=== PATIENT | male | born 1955 | race American Indian/Alaskan Native ===

== ENCOUNTER 2017-10-09 08:22 | Day surgery (SDC) | payer MEDICAID ==
[2017-10-09] MEDS ORDERED: TETRACAINE 0.5% OD SCH (10:14)
--- NOTE | 2017-10-09 10:57 | Anesthesia Consultation ---
Anesthesia Consult and Med Hx Date of service: 10/09/17 - Airway Anesthetic Teeth Evaluation: Poor (missing most teeth) ROM Head & Neck: Inadequate Mental/Hyoid Distance: Adequate Mallampati Class: Class III Intubation Access Assessment: Possibly Difficult - Cardiac Exam Cardiac Exam: RRR Anesthetic Concerns: Patient w/o recent MVR. Manager Oracle Database cleared for only Local Anesthesia. h/o PND. today tolerated recumbent postion w/o O2 in preop area for 20minutes under direct supervision - Pre-Operative Health Status ASA Pre-Surgery Classification: ASA4 Proposed Anesthetic Plan: Local - Pulmonary Hx Smoking: No Hx Respiratory Symptoms: Yes SOB: Yes COPD: Yes Home Oxygen Therapy: No - Cardiovascular System Hx Hypertension: Yes Hx Valvular Heart Disease: Yes (s/pMVR) - Central Nervous System Hx Back Pain: Yes - Other Systems Hx Alcohol Use: No Hx Substance Use: No Hx Cancer: No Hx Obesity: Yes
--- NOTE | 2017-10-09 10:58 | Anesthesia Day of Surgery ---
Anesthesia Day of Surgery - Day of Surgery Patient Examined: Yes Patient H&P Reviewed: Yes Patient is NPO: Yes Cardiac Clearance: Yes
[2017-10-09] MEDS: MYDRIACYL OD SCH ×3 (11:00→11:12)
[2017-10-09] MEDS: VIGAMOX OD SCH ×2 (11:00→11:06)
[2017-10-09] MEDS: AK-Dilate OD SCH ×3 (11:00→11:12)
[2017-10-09] MEDS ORDERED: SUBLIMAZE ONE (11:19)
[2017-10-09] MEDS ORDERED: VERSED ONE (11:20)
[2017-10-09] MEDS ORDERED: VISION BLUE IO ONE (11:36)
[2017-10-09] MEDS ORDERED: DIAMOX PO ONE (12:13)
--- NOTE | 2017-10-09 12:15 | Operative Report ---
Operative Report Operative Report: PATIENT'S NAME: DATE OF : DATE OF SURGERY: 10/09/2017 PREOPERATIVE DIAGNOSIS: white Cataract right eye POSTOPERATIVE DIAGNOSIS: Same OPERATIVE PROCEDURE: Phacoemulsification with intraocular lens implantation with trypan blue, right eye SURGEON: Sarah Martinez M.D. FRUIT PITTER SURGEON: Shravan Lens: [id number] 15.5 D ANESTHESIA: Monitored anesthesia care in combination with topical and intracameral anesthesia because of the established specific risk of reflux, arrhythmias, or anxiety attacks associated with ocular manipulation, as well as the difficulty of the supervisor pumping station to manage such potentially catastrophic events while simultaneously attempting to complete the surgical procedure and was deemed necessary for the patient's safety to have an 2 Year Olds Preschool Teacher present during the procedure whenever possible. An 2 Year Olds Preschool Teacher was utilized to regulate the intravenous sedation of the patient so the patient was cooperative yet not asleep in order for the patient to successfully maintain fixation of the eye on the operating light of the microscope. COMPLICATIONS: No surgical complications No blood loss. ALLERGIES: o known drug allergies]PROGNOSIS: Excellent INDICATIONS FOR SURGERY: The patient is undergoing surgery in the hopes of eliminating or improving these visual difficulties. PROCEDURE: After arriving at the surgery center, the patient was given topical anesthetic and dilating drops, as noted in the record. The patient was then taken into the operating room and given more anesthetic drops. The eyelids , lashes, and lid margins were scrubbed with Betadine solution, and the patient was draped. The Nurse 2 Year Olds Preschool Teacher administered IV sedation and monitored the patient during the procedure. The eye was then fixated with a 0.12, and a stab incision was made in the peripheral clear cornea into the anterior chamber. This was made on my left side. Air followed by trypan blue injected. Viscoelastic was next used to fill the anterior chamber. The eye was once again fixated with the 0.12 forceps and a keratome was used make an incision in clear cornea peripherally on my right hand side temporally. The capsule forceps were used to open the central anterior capsule and then make a continuous round capsulotomy. Hydrodissection was carried out utilizing a cannula and balanced salt solution to delineate the cortical material from the capsule and the nucleus from the cortical material. The phaco tip was introduced into the eye and used to remove the anterior cortical material in the area of the capsulotomy. Then the phaco tip was buried into the nucleus, and a chopping instrument was introduced into the eye and used to provide countertraction in the nucleus between this instrument and the phaco tip fracturing the nucleus. This procedure was repeated multiple times, providing multiple small segments of the lens, and then the phaco tip was used to remove each of these segments. An I/A tip was then used to remove the remaining cortex. The anterior chamber was refilled with viscoelastic. An one-piece, acrylic intraocular lens was then placed into an inserting cartridge. The tip of the inserting cartridge was introduced into the keratome incision and into the anterior chamber. The implant was gently advanced through the cartridge and into the eye, where it unfolded, and both haptics were placed in the capsular bag, where it centered nicely and appeared to be well fixated. After placement of the intraocular lens, the I~and~A handpiece was placed back into the eye and used to remove the viscoelastic, including viscoelastic that was behind the optic of the intraocular lens. The anterior chamber was then filled with balanced salt solution, and hydration of the wound was used to cause swelling of the wound and more appropriate watertight closure. When the wound was found to be firm, the patient was asked to comment on how bright the light was. If there was no light perception at all or if the light was substantially dimmer than during the rest of the surgery, the amount of fluid in the eye was decompressed to lower the intraocular pressure until the patient could see the bright light again. This was done to avoid any damage or decreased blood flow to the optic nerve. MEDICATIONS APPLIED AT END OF SURGERY: One drop of Pred Forte and Vigamox The patient was given a shield to wear at night and was instructed not to rub or push on the eye. DISCHARGE SUMMARY: The patient was released in stable condition. The patient and those with the patient were given a written sheet of postoperative instructions and counseling on any abnormal laboratory studies. The patient is to see us tomorrow for follow-up in the office and is to call immediately for any difficulties. Sarah Martinez M.D. Date
--- NOTE | 2017-10-09 12:16 | Short Stay Summary ---
Short Stay Documentation Date of service: 10/09/17 - History H&P: obtained from office - Allergies and Medications Current Medications: Allergies No Known Allergies Allergy (Unverified 10/09/17 10:12) Home Medications Medication Instructions Recorded Confirmed Last Taken Type Amiodarone 400 mg PO DAILY 10/09/17 10/09/17 10/07/17 09:00 History Combivent Inhaler 1 puff INHALATION PRN 10/09/17 10/09/17 10/08/17 21:00 History Latanoprost [Xalatan] 1 drop OU DAILY 10/09/17 10/09/17 10/08/17 21:00 History Tamsulosin HCl [Flomax] 0.4 mg PO DAILY 10/09/17 10/09/17 10/08/17 09:00 History Tiotropium [Spiriva] 1 puff INHALATION DAILY 10/09/17 10/09/17 10/08/17 21:00 History Active Medications Acetazolamide (Diamox) 500 mg PO ONCE ONE Stop: 10/09/17 12:14 Moxifloxacin HCl (Vigamox) 1 drops OD Q5MIN [facility] Stop: 10/11/17 11:01 Last Admin: 10/09/17 11:06 Dose: 1 drops Phenylephrine HCl (Ak-Dilate) 1 drops OD Q5MIN [facility] Last Admin: 10/09/17 11:12 Dose: 1 drops Prednisolone Acetate (Pred Forte 1%) 1 drops OD QID [facility] Tropicamide (Mydriacyl) 1 drops OD Q5MIN [facility] Last Admin: 10/09/17 11:12 Dose: 1 drops - Brief post op/procedure progress note Date of procedure: 10/09/17 Pre-op diagnosis: White cataract right eye Post-op diagnosis: same Procedure: Phacoemulsification with intraocular lens insertion and trypan blue right eye Anesthesia: MAC, local Surgeon: DAMON DOBBINS Estimated blood loss: none Pathology: none Condition: stable - Discharge Diagnoses (1) Age-related hypermature cataract of right eye Status: Resolved Short Stay Discharge Plan Follow up with: LUIS HEBERT MD [Primary Care Provider] - 7 Days
[2017-10-09 13:56] VITALS: BP 114/67
[2017-10-09] MEDS ORDERED: PRED FORTE 1% OD SCH (14:00)
--- NOTE | 2017-10-09 14:17 | Post Anesthesia Evaluation ---
- Post Anesthesia Evaluation Patient Participated: Yes Airway Patent: Yes Stable Respiratory Function: Yes Nausea/Vomiting: No Temp > 96.8F: Yes Pain Manageable: Yes Adequeate Hydration: Yes Anesthesia Complications: No
== END 2017-10-09 13:47 | disposition home or self-care (01) ==
LOC: OR 08:22
DX: H26.9 Unspecified cataract (principal); I11.0 Hypertensive heart disease with heart failure; I50.9 Heart failure, unspecified; J44.9 Chronic obstructive pulmonary disease, unspecified; E66.9 Obesity, unspecified; Z79.899 Other long term (current) drug therapy; Z68.34 Body mass index [BMI] 34.0-34.9, adult
CPT/HCPCS: 66982; J2250; J3010; V2632

== ENCOUNTER 2017-11-06 09:33 | Day surgery (SDC) | payer MEDICAID ==
[~2017-11-06 09:33] MED LIST: TETRACAINE 0.5% OS PRN
[2017-11-06] MEDS: MYDRIACYL OS SCH ×3 (11:05→11:15)
[2017-11-06] MEDS: AK-Dilate OS SCH ×3 (11:05→11:15)
[2017-11-06] MEDS: VIGAMOX OS SCH ×3 (11:05→11:15)
[2017-11-06] MEDS ORDERED: VERSED ONE ×2 (11:54)
[2017-11-06] MEDS ORDERED: SUBLIMAZE ONE ×2 (12:16)
[2017-11-06] MEDS ORDERED: WATER FOR IRRIG STERILE IR ONE (12:18)
[2017-11-06] MEDS ORDERED: DIAMOX PO ONE (12:33)
--- NOTE | 2017-11-06 12:34 | Operative Report ---
Operative Report Operative Report: PATIENT'S NAME: DATE OF : DATE OF SURGERY: 11/06/2017 PREOPERATIVE DIAGNOSIS: Cataract left eye POSTOPERATIVE DIAGNOSIS: Same OPERATIVE PROCEDURE: Phacoemulsification with intraocular lens implantation, left eye SURGEON: Sarah Martinez M.D. TELEGRAPHIC TYPEWRITER MECHANIC SURGEON: Shravan Lens: [id number] 17.5 D ANESTHESIA: Monitored anesthesia care in combination with topical and intracameral anesthesia because of the established specific risk of reflux, arrhythmias, or anxiety attacks associated with ocular manipulation, as well as the difficulty of the mat man to manage such potentially catastrophic events while simultaneously attempting to complete the surgical procedure and was deemed necessary for the patient's safety to have an Frame Feeder present during the procedure whenever possible. An Frame Feeder was utilized to regulate the intravenous sedation of the patient so the patient was cooperative yet not asleep in order for the patient to successfully maintain fixation of the eye on the operating light of the microscope. COMPLICATIONS: No surgical complications No blood loss. ALLERGIES: N known drug allergies PROGNOSIS: Excellent INDICATIONS FOR SURGERY: The patient is undergoing surgery in the hopes of eliminating or improving these visual difficulties. PROCEDURE: After arriving at the surgery center, the patient was given topical anesthetic and dilating drops, as noted in the record. The patient was then taken into the operating room and given more anesthetic drops. The eyelids , lashes, and lid margins were scrubbed with Betadine solution, and the patient was draped. The Nurse Frame Feeder administered IV sedation and monitored the patient during the procedure. The eye was then fixated with a 0.12, and a stab incision was made in the peripheral clear cornea into the anterior chamber. This was made on my left side. Viscoelastic was next used to fill the anterior chamber. The eye was once again fixated with the 0.12 forceps and a keratome was used make an incision in clear cornea peripherally on my right hand side temporally. The capsule forceps were used to open the central anterior capsule and then make a continuous round capsulotomy. Hydrodissection was carried out utilizing a cannula and balanced salt solution to delineate the cortical material from the capsule and the nucleus from the cortical material. The phaco tip was introduced into the eye and used to remove the anterior cortical material in the area of the capsulotomy. Then the phaco tip was buried into the nucleus, and a chopping instrument was introduced into the eye and used to provide countertraction in the nucleus between this instrument and the phaco tip fracturing the nucleus. This procedure was repeated multiple times, providing multiple small segments of the lens, and then the phaco tip was used to remove each of these segments. An I/A tip was then used to remove the remaining cortex. The anterior chamber was refilled with viscoelastic. An one-piece, acrylic intraocular lens was then placed into an inserting cartridge. The tip of the inserting cartridge was introduced into the keratome incision and into the anterior chamber. The implant was gently advanced through the cartridge and into the eye, where it unfolded, and both haptics were placed in the capsular bag, where it centered nicely and appeared to be well fixated. After placement of the intraocular lens, the I~and~A handpiece was placed back into the eye and used to remove the viscoelastic, including viscoelastic that was behind the optic of the intraocular lens. The anterior chamber was then filled with balanced salt solution, and hydration of the wound was used to cause swelling of the wound and more appropriate watertight closure. When the wound was found to be firm, the patient was asked to comment on how bright the light was. If there was no light perception at all or if the light was substantially dimmer than during the rest of the surgery, the amount of fluid in the eye was decompressed to lower the intraocular pressure until the patient could see the bright light again. This was done to avoid any damage or decreased blood flow to the optic nerve. MEDICATIONS APPLIED AT END OF SURGERY: One drop of Pred Forte and Vigamox The patient was given a shield to wear at night and was instructed not to rub or push on the eye. DISCHARGE SUMMARY: The patient was released in stable condition. The patient and those with the patient were given a written sheet of postoperative instructions and counseling on any abnormal laboratory studies. The patient is to see us tomorrow for follow-up in the office and is to call immediately for any difficulties. Sarah Martinez M.D. Date
--- NOTE | 2017-11-06 12:35 | Short Stay Summary ---
Short Stay Documentation Date of service: 11/06/17 - History H&P: obtained from office - Allergies and Medications Current Medications: Allergies No Known Allergies Allergy (Verified 11/05/17 11:07) Home Medications Medication Instructions Recorded Confirmed Last Taken Type Amiodarone 400 mg PO DAILY 10/09/17 11/06/17 11/05/17 History Latanoprost [Xalatan] 1 drop OU DAILY 10/09/17 11/06/17 11/04/17 History Tamsulosin HCl [Flomax] 0.4 mg PO DAILY 10/09/17 11/06/17 11/05/17 History Tiotropium [Spiriva] 1 puff INHALATION DAILY 10/09/17 11/06/17 11/05/17 History Aspirin [Aspir-Low] 81 mg PO QDAY 11/06/17 11/06/17 11/05/17 History Cephalexin [Keflex] 250 mg PO Q12H 11/06/17 11/06/17 11/05/17 History Cholecalciferol Vit D3 [Vitamin D3] 1,000 unit PO QDAY 11/06/17 11/06/17 History Clopidogrel Bisulfate [Plavix] 75 mg PO QDAY 11/06/17 11/06/17 11/05/17 History Fluticasone/Salmeterol [Advair 1 each IH BID 11/06/17 11/06/17 11/05/17 History 500-50 Diskus] Ipratropium/Albuterol Sulfate 1 dose IH QDAY 11/06/17 11/06/17 11/05/17 History [Combivent Respimat] Loratadine [Claritin] 10 mg PO DAILY 11/06/17 11/06/17 11/05/17 History Montelukast [Singulair] 10 mg PO QDAY 11/06/17 11/06/17 11/05/17 History Pantoprazole [Protonix] 40 mg PO QDAY 11/06/17 11/06/17 11/05/17 History Tamsulosin [Flomax] 0.4 mg PO QDAY 11/06/17 11/06/17 11/05/17 History Tiotropium [Spiriva] 18 mcg IH QDAY 11/06/17 11/06/17 11/05/17 History Torsemide [Demadex] 50 mg PO BID 11/06/17 11/06/17 11/05/17 History Warfarin [Coumadin] 10 mg PO QDAY 11/06/17 11/06/17 11/05/17 History Active Medications Acetazolamide (Diamox) 500 mg PO ONCE ONE Stop: 11/06/17 12:34 Moxifloxacin HCl (Vigamox) 1 drops OS Q5MIN [facility] Stop: 11/08/17 06:06 Last Admin: 11/06/17 11:15 Dose: 1 drops Phenylephrine HCl (Ak-Dilate) 1 drops OS Q5MIN [facility] Stop: 11/08/17 06:01 Last Admin: 11/06/17 11:15 Dose: 1 drops Prednisolone Acetate (Pred Forte 1%) 1 drops OS QID [facility] Tetracaine HCl (Tetracaine 0.5%) 1 drops OS Q5M PRN PRN Reason: Analgesia Last Admin: 11/06/17 11:05 Dose: 1 drops Tropicamide (Mydriacyl) 1 drops OS Q5MIN [facility] Stop: 11/08/17 06:06 Last Admin: 11/06/17 11:15 Dose: 1 drops - Brief post op/procedure progress note Date of procedure: 11/06/17 Pre-op diagnosis: left cataract Post-op diagnosis: same Procedure: Phacoemulsification with intraocular lens insertion left eye Anesthesia: MAC, local Surgeon: DAMON DOBBINS Estimated blood loss: none Pathology: none Condition: stable - Disposition Condition at discharge: Good Disposition: DC-01 TO HOME OR SELFCARE - Discharge Diagnoses (1) Nuclear sclerosis of left eye Status: Resolved Short Stay Discharge Plan Follow up with: LUIS HEBERT MD [Primary Care Provider] - 7 Days
[2017-11-06] MEDS ORDERED: PRED FORTE 1% ONE ×2 (13:11)
[2017-11-06] MEDS ORDERED: DIAMOX ONE ×2 (13:11)
[2017-11-06] MEDS ORDERED: PRED FORTE 1% OS SCH (14:00)
--- NOTE | 2017-11-06 17:29 | Anesthesia Day of Surgery ---
Anesthesia Day of Surgery - Day of Surgery Patient Examined: Yes Patient H&P Reviewed: Yes Patient is NPO: Yes
--- NOTE | 2017-11-06 17:30 | Anesthesia Consultation ---
Anesthesia Consult and Med Hx Date of service: 11/06/17 - Airway Anesthetic Teeth Evaluation: Good ROM Head & Neck: Adequate Mental/Hyoid Distance: Adequate Mallampati Class: Class II Intubation Access Assessment: Probably Good - Pulmonary Exam CTA: Yes - Cardiac Exam Cardiac Exam: RRR - Pre-Operative Health Status ASA Pre-Surgery Classification: ASA3 Proposed Anesthetic Plan: IV Sedation - Pulmonary Hx Smoking: Yes (FROM [id number]) Hx Respiratory Symptoms: Yes SOB: Yes COPD: Yes Hx Sleep Apnea: Yes - Cardiovascular System Hx Hypertension: Yes Hx Valvular Heart Disease: Yes (s/pMVR) - Central Nervous System Hx Back Pain: Yes Hx Psychiatric Problems: No - Other Systems Hx Alcohol Use: No Hx Substance Use: No Hx Cancer: No Hx Obesity: Yes
[2017-11-06 18:02] VITALS: BP 110/80
== END 2017-11-06 09:34 | disposition home or self-care (01) ==
LOC: OR 09:33
DX: H26.9 Unspecified cataract (principal); I11.0 Hypertensive heart disease with heart failure; I50.9 Heart failure, unspecified; J44.9 Chronic obstructive pulmonary disease, unspecified; E66.9 Obesity, unspecified; G47.33 Obstructive sleep apnea (adult) (pediatric); Z79.899 Other long term (current) drug therapy; Z87.891 Personal history of nicotine dependence; Z79.01 Long term (current) use of anticoagulants; Z95.2 Presence of prosthetic heart valve
CPT/HCPCS: 66984; J2250; J3010; V2632